=== PATIENT | male | born 1950 | race Hispanic/Latino ===

== ENCOUNTER 2017-12-20 06:20 | Day surgery (SDC) | payer MEDICARE, OTHER ==
[2017-12-14 10:20] VITALS: BMI 34.4
[2017-12-20] MEDS ORDERED: cefTRIAXone (Rocephin) 1 gm Inj ONE (07:16)
[2017-12-20] MEDS ORDERED: Iohexol 240 (50 ml) ONE (07:17)
[2017-12-20] MEDS ORDERED: Lidocaine 2% Jelly (Uro-Jet) ONE (07:17)
[2017-12-20] MEDS ORDERED: Propofol 10 mg/ml Inj (20 ML) ONE (07:37)
[2017-12-20] MEDS ORDERED: Midazolam 2 MG/2 ML VIAL ONE (07:37)
[2017-12-20] MEDS ORDERED: Lidocaine 2% Inj (20ml) ONE (07:38)
[2017-12-20] MEDS ORDERED: Gentamicin 80 mg/2mL Inj. ONE (08:45)
[2017-12-20] MEDS ORDERED: HYDROmorphone 0.5 mg/0.5 ml ISec IVP PRN (10:03)
[2017-12-20] MEDS ORDERED: Lactated Ringer's 1,000 ML IV SCH (10:15)
--- NOTE | 2017-12-20 10:47 | RAD ---
PROCEDURE: Retrograde pyelogram HISTORY: WITH LIHTOTRIPSY COMPARISON: TECHNIQUE: Fluoroscopy was provided in the operating room. 113 seconds of fluoro time were used. Sixteen images submitted FINDINGS: The study shows placement of a wire and instruments in the left renal collecting system. Multiple filling defects are seen. The final film show placement of a ureteral stent IMPRESSION: As above
[2017-12-20 11:37] VITALS: BP 129/77; PULSE 89; RESP 16; TEMP 98; O2SAT 97
--- NOTE | 2017-12-20 19:32 | OP ---
PROCEDURE DATE: 12/20/2017 PREOPERATIVE DIAGNOSES: Left renal pelvic and renal calculi. POSTOPERATIVE DIAGNOSES: Left renal pelvic and renal calculi. PROCEDURES: A cystoscopy, left retrograde pyelogram, left ureteroscopy, laser lithotripsy of renal pelvic and renal calculi, insertion of a left ureteral stent. ATTENDING SURGEON: Tyler Smiley MD ANESTHESIA: General. SPECIMENS: There were none. DRAINS: A 6 x 24 left ureteral stent. COMPLICATIONS: There were none. OPERATIVE FINDINGS: After informed consent was obtained, the patient was taken to the operating room, placed on the operating table. Anesthesia was administered. The patient was placed in the dorsal lithotomy position and prepped and draped in the usual sterile fashion. A 21-Gabonese cystoscope was placed into the patient's urethra and advanced proximally under direct vision until the bladder was entered. A full survey inspection of bladder was then performed, which revealed no stones, tumors, or foreign bodies of the bladder. Both ureteral orifices were visualized and appeared within normal limits. At this point, a 5-Gabonese Pollack catheter was passed through the cystoscope and guided into the left ureteral orifice. On fluoroscopy, there were multiple large densities noted in the region of the left renal fossa. Contrast was then instilled into the system during real-time fluoroscopy. The ureter appeared within normal limits. In the renal pelvis, there were multiple large filling defects with some apparent filling defects in the lower pole calyces. At this point, a sensor wire was obtained. The wire was then passed through the Pollack catheter and guided up the ureter under fluoroscopic guidance until it coiled in the upper collecting system. At this point, the bladder was drained and the cystoscope was removed. A 7.5 Gabonese semi-rigid ureteroscope was then passed under direct vision into the bladder and guided into the left ureteral orifice. The semi-rigid scope was able to be advanced to the upper ureter; however, due to a slight bend in the ureter at this point, the scope could not be easily passed into the upper tract. At this point, the semi-rigid scope was removed. The cystoscope was then passed and a second wire was then placed. A flexible ureteroscope was then obtained. It was passed over the second wire and advanced up the ureter under direct and fluoroscopic guidance until it was at the level of the renal pelvis. At this point, two large yellow calculi were noted filling the renal pelvis. The guidewire was then removed and a holmium laser fiber was obtained. It was passed through the ureteroscope and using the dusting setting, fragmentation of the stones was begun. The stones were able to be broken into multiple small pieces and most of the stone was disintegrated using the dusting feature. After the renal pelvic stones were treated, the scope was then advanced more proximally. In the mid pole vivienne, there was some stone noted, which was also able to be fragmented into small pieces. The scope was also able to be manipulated into the lower pole and again some larger stones were noted, which were able to be fragmented into smaller pieces. After all the large stone burden had been fragmented, procedure was completed. There were remaining pieces of stone noted, but visualization was becoming difficult due to all the stone fragments and the scope could not be further deflected to contact the lower pole fragments with the laser fiber extended. At this point, the scope was withdrawn to the level of the renal pelvis. There was a small amount of debris in the renal pelvis, but there were no large stone fragments noted. At this point, the scope was withdrawn under direct vision. The remainder of the ureter was clear of any sizable stone fragments. The cystoscope was then re-passed while back loading the guidewire. An open-ended ureteral catheter was then passed over the wire and further contrast was instilled into the system. There was no evidence of extravasation. There were some small filling defects noted in the mid and lower pole calyces and the renal pelvis appeared clear. At this point, the safety wire was removed and a 6 x 24 stent was passed over the wire through the cystoscope and into the left ureter. The stent was then advanced proximally under direct and fluoroscopic guidance until it was in proper position. The guidewire was then removed. A coil was seen in the upper pole on fluoroscopy. A coil was seen in the bladder on cystoscopy. The stent was left intact to facilitate removal. At this point, the procedure was completed. The patient received intravenous antibiotics prior to start of the procedure. He was returned to the supine position and taken to the recovery room awake and in stable condition. Tyler Smiley MD [facility] # [id number]
== END 2017-12-20 12:15 | disposition home or self-care (01) ==
LOC: SDS 06:20
PROVIDERS: ATTEND Urology
DX: N20.0 Calculus of kidney (principal); I10 Essential (primary) hypertension; E11.9 Type 2 diabetes mellitus without complications; Z79.84 Long term (current) use of oral hypoglycemic drugs
CPT/HCPCS: 52356; 74420; C1758; C1769; C2625; J0696; J1170; J1580; J1885; J2250; J2405; J2704; J2765; J3010; J7120 ×2; Q9966